=== PATIENT | male | born 1945 | race Caucasian/White ===

== ENCOUNTER 2019-05-20 12:15 | Emergency (ER) | payer MEDICARE, MEDICAID ==
[~2019-05-20] VITALS: Ht 174 cm; Wt 68.9 kg
[2019-05-20] MEDS ORDERED: FUROSEMIDE 40 MG/4 ML INJ (LASIX) IVP ONE (12:45)
--- NOTE | 2019-05-20 12:48 | ED Lower Extremity ---
General Chief Complaint: Cardiac/General Problems Stated Complaint: RT LEG SWELLING Nursing Triage Note: PATIENT C/O RIGHT LOWER EXTREMITY SWELLING. STATES IT STARTED 3 WEEKS AGO BECAUSE HE RAN OUT OF HIS WATER PILLS. Nursing Sepsis Screen: No Definite Risk Source: patient, RN notes reviewed Exam Limitations: no limitations (DAVID HORN DO) History of Present Illness Date Seen by Provider: May 20, 2019 Time Seen by Provider: 12:32 Onset: other (x 3 weeks) Pain/Injury Location: right leg (swelling; pain) Method of Injury: other (non known injury; ran out of his water pill) Modifying Factors: Improves With Other (none) (DAVID HORN DO) Allergies and Home Medications Allergies Coded Allergies: No Known Drug Allergies (Unverified , 05/20/19) Patient Home Medication List Home Medication List Reviewed: Yes (DAVID HORN DO) Review of Systems Constitutional: see HPI Cardiovascular: see HPI, edema (RLE) (DAVID HORN DO) All Other Systems Reviewed Negative Unless Noted: Yes (Negative excepted noted.) (DAVID HORN DO) Past Rmniexm-Jpqqqa-Asrqav Hx Patient Social History Recent Foreign Travel: No Contact w/Someone Who Travel: No Recent Infectious Disease Expo: No Physical Abuse: No Sexual Abuse: No Mistreated: No Fear: No (DAVID HORN DO) Physical Exam Vital Signs Vital Signs - First Documented 05/20/19 12:21 Temp 97.4 Pulse 72 Resp 18 B/P (MAP) 132/80 (97) Pulse Ox 99 O2 Delivery Room Air (KATHI GONSALES MD) Vital Signs Capillary Refill : Less Than 3 Seconds (DAVID HORN DO) Height, Weight, BMI Height: 5'8.50" Weight: 152lbs. oz. 68.053879ia; BMI Method:Stated General Appearance: WD/WN, no apparent distress Cardiovascular: regular rate, rhythm Respiratory: no respiratory distress Legs: right leg pain, right leg soft tissue tenderness, right leg swelling, right leg other (redness) Neurologic/Psychiatric: no motor/sensory deficits, alert, normal mood/affect, oriented x 3 Skin: warm/dry, other (RLE red and very swollen) (DAVID HORN DO) Progress/Results/Core Measures Results/Orders Lab Results Laboratory Tests Test 05/20/19 12:27 05/20/19 12:54 Range/Units White Blood Count 10.4 4.3-11.0 10^3/uL Red Blood Count 4.48 4.35-5.85 10^6/uL Hemoglobin 12.7 L 13.3-17.7 G/DL Hematocrit 41 40-54 % Mean Corpuscular Volume 90 80-99 FL Mean Corpuscular Hemoglobin 28 25-34 PG Mean Corpuscular Hemoglobin Concent 31 L 32-36 G/DL Red Cell Distribution Width 19.5 H 10.0-14.5 % Platelet Count 156 130-400 10^3/uL Mean Platelet Volume 11.5 H 7.4-10.4 FL Neutrophils (%) (Auto) 69 42-75 % Lymphocytes (%) (Auto) 13 12-44 % Monocytes (%) (Auto) 17 H 0-12 % Eosinophils (%) (Auto) 0 0-10 % Basophils (%) (Auto) 1 0-10 % Neutrophils # (Auto) 7.2 1.8-7.8 X 10^3 Lymphocytes # (Auto) 1.4 1.0-4.0 X 10^3 Monocytes # (Auto) 1.7 H 0.0-1.0 X 10^3 Eosinophils # (Auto) 0.0 0.0-0.3 10^3/uL Basophils # (Auto) 0.1 0.0-0.1 10^3/uL D-Dimer 4.00 H 0.00-0.49 UG/ML Sodium Level 131 L 135-145 MMOL/L Potassium Level 3.4 L 3.6-5.0 MMOL/L Chloride Level 94 L 98-107 MMOL/L Carbon Dioxide Level 21 21-32 MMOL/L Anion Gap 16 H 5-14 MMOL/L Blood Urea Nitrogen 10 7-18 MG/DL Creatinine 0.64 0.60-1.30 MG/DL Estimat Glomerular Filtration Rate > 60 BUN/Creatinine Ratio 16 Glucose Level 100 70-105 MG/DL Calcium Level 7.7 L 8.5-10.1 MG/DL Corrected Calcium 9.1 8.5-10.1 MG/DL Magnesium Level 1.9 1.8-2.4 MG/DL Total Bilirubin 3.4 H 0.1-1.0 MG/DL Aspartate Amino Transf (AST/SGOT) 74 H 5-34 U/L Alanine Aminotransferase (ALT/SGPT) 23 0-55 U/L Alkaline Phosphatase 190 H 40-136 U/L Pro-B-Type Natriuretic Peptide 590.5 H <75.0 PG/ML Total Protein 6.7 6.4-8.2 GM/DL Albumin 2.2 L 3.2-4.5 GM/DL Smear Scan YES Urine Color MAGAN H Urine Clarity CLEAR Urine pH 6.0 5-9 Urine Specific [place] 1.010 L 1.016-1.022 Urine Protein NEGATIVE NEGATIVE Urine Glucose (UA) NEGATIVE NEGATIVE Urine Ketones NEGATIVE NEGATIVE Urine Nitrite NEGATIVE NEGATIVE Urine Bilirubin 1+ H NEGATIVE Urine Urobilinogen 1.0 NORMAL MG/DL Urine Leukocyte Esterase NEGATIVE NEGATIVE Urine RBC (Auto) 1+ H NEGATIVE Urine RBC 2-5 H /HPF Urine WBC 0-2 /HPF Urine Squamous Epithelial Cells RARE /HPF Urine Crystals NONE /LPF Urine Bacteria NEGATIVE /HPF Urine Casts PRESENT /LPF Urine Hyaline Casts 10-25 H /LPF Urine Mucus MODERATE H /LPF Urine Culture Indicated NO (KATHI GONSALES MD) Medications Given in ED Current Medications Medications Dose Ordered Sig/Carly Route Start Time Stop Time Status Last Admin Dose Admin Furosemide 40 mg ONCE ONCE IVP 05/20/19 12:45 05/20/19 12:46 DC 05/20/19 12:55 40 MG (KATHI GONSALES MD) Vital Signs/I&O 05/20/19 12:21 Temp 97.4 Pulse 72 Resp 18 B/P (MAP) 132/80 (97) Pulse Ox 99 O2 Delivery Room Air (KATHI GONSALES MD) Blood Pressure Mean: 97 Progress Progress Note : Time: 14:10 Progress Note I assumed care from Dr. Scanlon. Patient has had a progressively red and swollen right leg for the last 3 weeks after being off his medicines. The patient has a markedly elevated d-dimer. I reviewed the patient's medications that he needed including amiloride 5 mg and Protonix 40 mg. I arranged for an outpatient ultrasound of the right leg to rule out a DVT. I patient follow up with Vane Cardozo at [facility] as scheduled for 24 May) next Thursday) at 10 a.m. I asked that ultrasound, with the results of his ultrasound today and if he has evidence of a DVT I'll initiate Eliquis for him. I treated the cellulitis the right leg milligram Rocephin and place patient on 10 day course of Bactrim DS. (KATHI GONSALES MD) Departure Impression Primary Impression: Cellulitis Qualified Codes: L03.115 - Cellulitis of right lower limb Additional Impression: Elevated d-dimer Disposition: HOME, SELF-CARE Condition: Unchanged Departure-Patient Inst. Decision time for Depature: 14:16 (KATHI GONSALES MD) Referrals: [facility],LOCAL PHYSICIAN (PCP) Primary Care Physician Patient Instructions: Cellulitis (Skin Infection), Adult (DC) Add. Discharge Instructions: Bactrim as prescribed. Present for ultrasound of the right leg now. Return if any problems or questions. All discharge instructions reviewed with patient and/or family. Voiced understanding. DAVID HORN DO May 20, 2019 12:48 KATHI GONSALES MD May 20, 2019 14:14
[2019-05-20 13:23] LABS: BUN/CREATININE RATIO 16; CARBON DIOXIDE 21 MMOL/L (21-32); CHLORIDE 94 MMOL/L (98-107); CREATININE SERUM 0.64 MG/DL (0.60-1.30); GFR ESTIMATED > 60; POTASSIUM 3.4 MMOL/L (3.6-5.0); SODIUM 131 MMOL/L (135-145)
[2019-05-20 13:24] LABS: ALANINE AMINOTRANSFERASE 23 U/L (0-55); ALBUMIN 2.2 GM/DL (3.2-4.5); ALKALINE PHOSPHATASE 190 U/L (40-136); BILIRUBIN,TOTAL 3.4 MG/DL (0.1-1.0); CALCIUM 7.7 MG/DL (8.5-10.1); GLUCOSE 100 MG/DL (70-105); MAGNESIUM 1.9 MG/DL (1.8-2.4); TOTAL PROTEIN 6.7 GM/DL (6.4-8.2)
[2019-05-20 13:29] LABS: WHITE BLOOD COUNT 10.4 10^3/uL (4.3-11.0)
[2019-05-20 13:30] LABS: BASOPHILS # (AUTO) 0.1 10^3/uL (0.0-0.1); BASOPHILS % (AUTO) 1 % (0-10); EOSINOPHILS % (AUTO) 0 % (0-10); HEMATOCRIT 41 % (40-54); HEMOGLOBIN 12.7 G/DL (13.3-17.7); LYMPHOCYTES # (AUTO) 1.4 X 10^3 (1.0-4.0); LYMPHOCYTES % (AUTO) 13 % (12-44); MEAN CORPUSCULAR HEMOGLOBIN 28 PG (25-34); MEAN CORPUSCULAR HGB CONC 31 G/DL (32-36); MEAN CORPUSCULAR VOLUME 90 FL (80-99); MEAN PLATELET VOLUME 11.5 FL (7.4-10.4); MONOCYTES # (AUTO) 1.7 X 10^3 (0.0-1.0); MONOCYTES % (AUTO) 17 % (0-12); NEUTROPHILS # (AUTO) 7.2 X 10^3 (1.8-7.8); NEUTROPHILS % (AUTO) 69 % (42-75); PLATELET COUNT 156 10^3/uL (130-400); RED CELL DISTRIBUTION WIDTH 19.5 % (10.0-14.5)
[2019-05-20 13:31] LABS: SMEAR SCAN COMMENT YES
[2019-05-20 13:42] LABS: BILIRUBIN,URINE 1+ (NEGATIVE); CLARITY,URINE CLEAR; COLOR,URINE AMBER; GLUCOSE, URINE (UA) NEGATIVE (NEGATIVE); KETONES,URINE NEGATIVE (NEGATIVE); NITRITE,URINE NEGATIVE (NEGATIVE); PROTEIN,URINE NEGATIVE (NEGATIVE)
[2019-05-20 13:43] LABS: BACTERIA,URINE NEGATIVE /HPF; LEUKOCYTE ESTERASE ,URINE NEGATIVE (NEGATIVE); SQUAMOUS EPITHELIAL CELL,UR RARE /HPF; WBC,URINE 0-2 /HPF
[2019-05-20] MEDS ORDERED: cefTRIAXone FOR IV USE 2,000 MG in WATER (STERILE) FOR INJECTION 20 ML IV ONE (14:30)
[2019-05-20 15:06] VITALS: BP 112/78
== END 2019-05-20 15:06 | disposition home or self-care (01) ==
LOC: ER FS 12:18
DX: L03.115 Cellulitis of right lower limb (principal); R79.1 Abnormal coagulation profile
CPT/HCPCS: 36415; 80053; 81000; 83735; 83880; 85025; 85379; 86141

== ENCOUNTER 2019-06-27 15:48 | Emergency (ER) | payer MEDICARE, MEDICAID ==
[~2019-06-27] VITALS: Ht 174 cm; Wt 68.9 kg
--- OUTSIDE RECORDS SUMMARY | 2019-06-27 15:52 | XMS REPORT | Continuity of Care Document ---
Author Organization Unknown Address Unknown Phone Unavailable Allergies There is no data. Medications There is no data. Problems There is no data. Procedures There is no data. Results There is no data. Encounters ACCT No. Visit Date/Time Discharge Status Pt. Type Provider Facility Loc./Unit Complaint [id number] 06/16/2019 12:00:00 06/16/2019 23:59:59 [facility]
--- NOTE | 2019-06-27 15:55 | NUR ---
After talking with Dr. Amezcua, patient stated that he would like to leave as he wanted to have his 'legs drained' and did not want his labs drawn or his Lasix increased. He stated if that is all we plan to do here then he does not need our services.
[2019-06-27 15:58] VITALS: BP 117/56
--- NOTE | 2019-06-27 16:07 | ED Lower Extremity ---
General Chief Complaint: Lower Extremity Stated Complaint: PAIN IN BOTH LEGS, BOTH LEGS SWOLLEN Source: patient Exam Limitations: no limitations History of Present Illness Date Seen by Provider: Jun 27, 2019 Time Seen by Provider: 13:55 Initial Comments 73-year-old male presents with bilateral lower leg swelling. Patient reports that has been going on for about 3 months. Patient presents because he "wants his legs drained" I discussed with patient that with this being a chronic problem we need to get him into wound care to have his legs wrapped, check some basic labs and likely increase his Lasix was switched to Bumex. Patient got very angry states that no he is not undergoing were negative his legs wrapped, that he is not and increase his Lasix. That he wants needle stuck and and his legs drained. I discussed with him that we do not do that here and that is not the treatment. Patient got very angry and left AMA with out any further evaluation. Allergies and Home Medications Allergies Coded Allergies: No Known Drug Allergies (Unverified , 05/20/19) Patient Home Medication List Home Medication List Reviewed: Yes Review of Systems Constitutional: see HPI Cardiovascular: see HPI, edema Musculoskeletal: see HPI Past Fvujldu-Zyztjg-Ucpbhk Hx Past Med/Social Hx: Reviewed Nursing Past Med/Soc Hx Patient Social History Alcohol Use: Past History Recreational Drug Use: No Type Used: Cigarettes 2nd Hand Smoke Exposure: No Recent Foreign Travel: No Contact w/Someone Who Travel: No Recent Hopitalizations: No Seasonal Allergies Seasonal Allergies: No Past Medical History Surgeries: Yes Cardiac, Coronary Stent, Gallbladder Respiratory: No Cardiac: Yes Hypertension Neurological: No Genitourinary: No Gastrointestinal: Yes Cirrhosis Musculoskeletal: No Endocrine: No HEENT: No Cancer: No Psychosocial: No Integumentary: No Blood Disorders: No Physical Exam Vital Signs Vital Signs - First Documented 06/27/19 15:58 Temp 99.4 Pulse 84 Resp 20 B/P (MAP) 117/56 (76) Pulse Ox 95 O2 Delivery Room Air Capillary Refill : Height, Weight, BMI Height: 5'8.50" Weight: 152lbs. oz. 68.888576tt; BMI Method:Stated General Appearance: WD/WN, no apparent distress Legs: bilateral leg swelling (3+ edema ) Progress/Results/Core Measures Results/Orders Vital Signs/I&O 06/27/19 15:58 Temp 99.4 Pulse 84 Resp 20 B/P (MAP) 117/56 (76) Pulse Ox 95 O2 Delivery Room Air Progress Progress Note : Progress Note Patient continued to refuse any treatment as I tried to discuss with him options. He states that he wanted "needle stuck in his legs to drain it that he had done 10 years ago. I discussed with patient that for chronic edema, the treatment is wraps and medication. Patient was adamant that he was not doing also medication and that I was a "Fucking idiot" patient then left the ER AMA. Departure Impression Primary Impression: Lymphedema of both lower extremities Disposition: HOME, SELF-CARE Condition: Against Medical Advice Departure-Patient Inst. Referrals: JERI MOORE APRN (PCP) Primary Care Physician CHARMAINE,LOCAL PHYSICIAN (Family) Primary Care Physician FRENCH DREW DO Jun 27, 2019 16:06
[2019-06-29] MEDS ORDERED: ASPI-983 PO (15:52)
[2019-06-29] MEDS ORDERED: NITR0.4T42 SL (15:52)
[2019-06-29] MEDS ORDERED: METO-333 PO (15:52)
[2019-06-29] MEDS ORDERED: FURO40TA4 PO (15:52)
[2019-06-29] MEDS ORDERED: SULF-222 PO (15:52)
[2019-06-29] MEDS ORDERED: PANT40TA3 PO (15:52)
[2019-06-29] MEDS ORDERED: FLUT1BLS3 INH (15:52)
[2019-06-29] MEDS ORDERED: LACT10SO PO (15:52)
[2019-06-29] MEDS ORDERED: AMIL5TAB3 PO (15:52)
[2019-06-29] MEDS ORDERED: OMEG1CAP58 PO (15:52)
[2019-06-29] MEDS ORDERED: Lactobacillus (15:52)
[2019-06-30] MEDS ORDERED: LACT1CAP62 PO (09:14)
[2019-06-30] MEDS ORDERED: MULT1TAB69 PO (09:19)
== END 2019-06-27 16:10 | disposition home or self-care (01) ==
LOC: EDUNIT# 15:48 → ER FS 15:50
DX: I89.0 Lymphedema, not elsewhere classified (principal); I10 Essential (primary) hypertension; Z95.5 Presence of coronary angioplasty implant and graft
CPT/HCPCS: 99281

== ENCOUNTER 2019-06-29 14:34 | Inpatient (IN) | payer MEDICARE, MEDICAID | END 2019-07-05 14:28 | disposition home or self-care (01) | LOC: ER FS 14:34 → 4TH 16:52 | DX: K72.90 Hepatic failure, unspecified without coma (principal); E88.09 Other disorders of plasma-protein metabolism, not elsewhere classified; K70.31 Alcoholic cirrhosis of liver with ascites; I11.0 Hypertensive heart disease with heart failure; I50.32 Chronic diastolic (congestive) heart failure; I89.0 Lymphedema, not elsewhere classified; R60.1 Generalized edema; S20.211A Contusion of right front wall of thorax, initial encounter; E87.6 Hypokalemia; F10.21 Alcohol dependence, in remission; I49.1 Atrial premature depolarization; R00.0 Tachycardia, unspecified; R07.89 Other chest pain; D64.9 Anemia, unspecified; M54.9 Dorsalgia, unspecified; I25.10 Atherosclerotic heart disease of native coronary artery without angina pectoris; J44.9 Chronic obstructive pulmonary disease, unspecified; R45.1 Restlessness and agitation; F17.210 Nicotine dependence, cigarettes, uncomplicated; K21.9 Gastro-esophageal reflux disease without esophagitis; R46.89 Other symptoms and signs involving appearance and behavior; W01.0XXA Fall on same level from slipping, tripping and stumbling without subsequent striking against object, initial encounter; Z95.5 Presence of coronary angioplasty implant and graft; Z91.19 Patient's noncompliance with other medical treatment and regimen ==

== ENCOUNTER 2019-07-10 12:40 | Inpatient (IN) | payer MEDICARE, MEDICAID | END 2019-07-13 03:51 | disposition E | LOC: 4TH 07-12 08:21 → ER FS 12:40 → 4TH 15:40 | DX: A41.9 Sepsis, unspecified organism (principal); G03.9 Meningitis, unspecified; E87.2 Acidosis; N17.9 Acute kidney failure, unspecified; K72.90 Hepatic failure, unspecified without coma; K70.30 Alcoholic cirrhosis of liver without ascites; I10 Essential (primary) hypertension; J44.9 Chronic obstructive pulmonary disease, unspecified; F17.210 Nicotine dependence, cigarettes, uncomplicated; Z95.5 Presence of coronary angioplasty implant and graft; M54.9 Dorsalgia, unspecified; I89.0 Lymphedema, not elsewhere classified; S80.812A Abrasion, left lower leg, initial encounter; X58.XXXA Exposure to other specified factors, initial encounter ==